=== PATIENT | female | born 1995 | race African-American/Black ===

== ENCOUNTER 2018-01-16 22:46 | Emergency (ER) | payer OTHER ==
[~2018-01-16] VITALS: Ht 152.4 cm; Wt 61.2 kg
[2018-01-16 22:52] VITALS: BP 149/95
[2018-01-16] MEDS ORDERED: TRIAMCINOLONE A80 G2 TOP (23:28)
[2018-01-16] MEDS ORDERED: HYDROXYZINE HCL25 M1 PO (23:28)
[2018-01-20] MEDS ORDERED: PREDNISONE 20 M20 MG PO (21:46)
[2018-01-20] MEDS ORDERED: PEPCID20 MG PO (21:46)
[2018-01-20] MEDS ORDERED: KEFLEX500 M1 PO (21:46)
[2018-01-20] MEDS ORDERED: BACTRIM DS TAB1 EACH PO (22:04)
[2018-01-22] MEDS ORDERED: MOBIC15 MG PO (00:34)
== END 2018-01-16 23:36 | disposition home or self-care (01) ==
LOC: ER 22:46
DX: L30.9 Dermatitis, unspecified (principal); J45.909 Unspecified asthma, uncomplicated; Z90.49 Acquired absence of other specified parts of digestive tract; Z88.0 Allergy status to penicillin

== ENCOUNTER 2018-03-22 18:50 | Emergency (ER) | payer OTHER ==
[~2018-03-22] VITALS: Ht 152.4 cm; Wt 59.0 kg
[~2018-03-22 18:50] MED LIST: BACTRIM DS TAB1 EACH PO; HYDROXYZINE HCL25 M1 PO; KEFLEX500 M1 PO; MOBIC15 MG PO; PEPCID20 MG PO; PREDNISONE 20 M20 MG PO; TRIAMCINOLONE A80 G2 TOP
[2018-03-22] MEDS ORDERED: HYDROXYZINE HCL25 M1 PO (19:58)
[2018-03-22 20:18] VITALS: BP 148/86
[2018-03-24 15:10] LABS: NEISSERIA GONORRHEA-PCR Negative (Negative)
== END 2018-03-22 20:24 | disposition home or self-care (01) ==
LOC: ER 18:50
PROVIDERS: Physician Assistant
DX: L30.9 Dermatitis, unspecified (principal); N89.8 Other specified noninflammatory disorders of vagina; J45.909 Unspecified asthma, uncomplicated; Z88.1 Allergy status to other antibiotic agents; Z88.0 Allergy status to penicillin